=== PATIENT | male | born 1945 | race Caucasian/White ===

== ENCOUNTER 2021-09-06 09:36 | Outpatient (CLI) | payer OTHER | END 2021-09-06 09:37 | disposition home or self-care (01) | LOC: CSHLAB 09:36 | PROVIDERS: ATTEND Internal Medicine Gastroenterology | DX: Z20.822 Contact with and (suspected) exposure to COVID-19 (principal); R13.10 Dysphagia, unspecified | CPT/HCPCS: 87811 ==

== ENCOUNTER 2021-09-11 07:49 | Day surgery (SDC) | payer OTHER ==
[2021-09-07 11:05] VITALS: BMI 22.4
[2021-09-11] MEDS ORDERED: Lidocaine 1% PF 5 ML VIAL ONE (08:50)
[2021-09-11] MEDS ORDERED: PROPOFOL 20 ML ONE ×2 (08:50→10:17)
[2021-09-11] MEDS ORDERED: Lidocaine 1% MPF 2 ML VIAL ONE (09:06)
[2021-09-11] MEDS ORDERED: PHENYLEPHRINE-NS 100 MCG/ML 10 ML SYRINGE ONE (09:33)
== END 2021-09-11 11:23 | disposition home or self-care (01) ==
LOC: CSHSDC 07:49
PROVIDERS: ATTEND Internal Medicine Gastroenterology
PROC: 0DJ08ZZ Inspection of Upper Intestinal Tract, Via Natural or Artificial Opening Endoscopic (ICD-10-PCS; principal; 2021-09-11)
PROC: 0D757ZZ Dilation of Esophagus, Via Natural or Artificial Opening (ICD-10-PCS; principal; 2021-09-11)
DX: K22.2 Esophageal obstruction (principal); K21.00 Gastro-esophageal reflux disease with esophagitis, without bleeding; R19.7 Diarrhea, unspecified; I10 Essential (primary) hypertension; I25.10 Atherosclerotic heart disease of native coronary artery without angina pectoris; N40.0 Benign prostatic hyperplasia without lower urinary tract symptoms; I48.91 Unspecified atrial fibrillation; Z86.010 Personal history of colon polyps; Z79.82 Long term (current) use of aspirin; Z79.899 Other long term (current) drug therapy; Z88.8 Allergy status to other drugs, medicaments and biological substances; Z95.0 Presence of cardiac pacemaker
CPT/HCPCS: J2704

== ENCOUNTER 2021-10-15 13:00 | Outpatient (CLI) | payer OTHER | END 2021-10-15 13:01 | disposition home or self-care (01) | LOC: CSHLAB 13:00 | PROVIDERS: ATTEND Internal Medicine Gastroenterology | DX: Z20.822 Contact with and (suspected) exposure to COVID-19 (principal); K63.5 Polyp of colon | CPT/HCPCS: 87811 ==

== ENCOUNTER 2021-10-18 10:45 | Day surgery (SDC) | payer OTHER ==
[2021-10-16 09:54] VITALS: BMI 22.4
[2021-10-18] MEDS ORDERED: PROPOFOL 20 ML ONE (11:56)
== END 2021-10-18 13:20 | disposition home or self-care (01) ==
LOC: CSHSDC 10:45
PROVIDERS: ATTEND Internal Medicine Gastroenterology
PROC: 0DJD8ZZ Inspection of Lower Intestinal Tract, Via Natural or Artificial Opening Endoscopic (ICD-10-PCS; principal; 2021-10-18)
DX: R19.7 Diarrhea, unspecified (principal); Z86.010 Personal history of colon polyps; K57.30 Diverticulosis of large intestine without perforation or abscess without bleeding; K64.9 Unspecified hemorrhoids; I10 Essential (primary) hypertension; I25.10 Atherosclerotic heart disease of native coronary artery without angina pectoris; F32.A Depression, unspecified; Z20.822 Contact with and (suspected) exposure to COVID-19; F41.9 Anxiety disorder, unspecified; K21.9 Gastro-esophageal reflux disease without esophagitis; Z90.49 Acquired absence of other specified parts of digestive tract; Z88.8 Allergy status to other drugs, medicaments and biological substances
CPT/HCPCS: J2704